=== PATIENT | female | born 1965 | race Caucasian/White ===

== ENCOUNTER → 2016-08-09 | Outpatient (CLI) | payer OTHER ==
--- NOTE | 2016-08-10 15:10 | MAMMOGRAPHY REPORT ---
BILATERAL DIGITAL SCREENING MAMMOGRAM TOMOSYNTHESIS WITH CAD: 08/09/2016 CLINICAL HISTORY: Routine screening. Patient has no complaints. TECHNIQUE: Breast tomosynthesis in addition to standard 2D mammography was performed. Current study was also evaluated with a Computer Aided Detection (CAD) system. COMPARISON: Comparison is made to exams dated: 08/06/2015 mammogram, 10/30/2012 mammogram, 08/19/2015 mammogram, 11/01/2013 mammogram, 10/26/2010 mammogram, and 10/24/2009 mammogram - [facility]. BREAST COMPOSITION: There are scattered areas of fibroglandular density in both breasts. FINDINGS: No new suspicious mass, architectural distortion or cluster of microcalcifications is see n. There is stable asymmetry in the upper outer quadrant of the right breast. IMPRESSION: ACR BI-RADS CATEGORY 1: NEGATIVE There is no mammographic evidence of malignancy. A 1 year screening mammogram is recommended. The p atient will receive written notification of the results. Approximately 10% of breast cancers are not detected with mammography. A negative mammographic repor t should not delay biopsy if a clinically suggestive mass is present. Jael Faust M.D. ay/:08/09/2016 15:51:25 Camera Technician: Darren GONZALES(R)(M), [facility] letter sent: Normal 1/2 BI-RADS Code: ACR BI-RADS Category 1: Negative
== END | disposition home or self-care (01) ==
LOC: C.MAMM 14:23
PROVIDERS: ATTEND Obstetrics & Gynecology
DX: Z12.31 Encounter for screening mammogram for malignant neoplasm of breast (principal)

== ENCOUNTER 2016-09-15 23:28 | Emergency (ER) | payer OTHER ==
[~2016-09-15] VITALS: Ht 167.6 cm; Wt 78.5 kg
[2016-09-15 23:30] VITALS: TEMP 36.6; Ht 167.6 cm; Wt 78.5 kg
[2016-09-15] MEDS ORDERED: KETOROLAC TROMETHAMINE 30 MG/ML VIAL IV STA (23:58)
--- NOTE | 2016-09-16 00:09 | EMERGENCY ROOM VISIT NOTE ---
History Report prepared by Estrella: Bhavesh Mtz Under the Supervision of: Dr. Marlene Farooq D.O. First contact with patient: 23:34 Chief Complaint: ABDOMINAL PAIN Stated Complaint: ABD PAIN History of Present Illness The patient is a 51 year old female who presents to the Emergency Room with complaints of worsening, constant, sharp abdominal pain starting around 1400 today. The patient currently rates her discomfort as a 7/10 in severity. The patient states that the pain is mostly periumbilical and some on the right side. The patient denies any nausea, vomiting, chills, diarrhea, constipation, hematochezia, and urinary symptoms. The patient states that it does not get worse when she eats. She states that she last had a bowel movement last night. The patient states that she took Tylenol, and it helped, however the pain came back very quickly. The patient states that she is taking Depo-Provera since about a month ago. The patient states that she has recently gotten a routine colonoscopy that came back normal. She denies any pertinent medical history other than her son having Crohn's disease. The patient states that she has a history of an exploratory laparotomy. Source of History: patient Onset: 1400 Position: abdomen Symptom Intensity: 7/10 Quality: sharp Timing: constant, worsening Modifying Factors (Relieving): tylenol Associated Symptoms: No chills, No diarrhea, No hematochezia, No nausea, No urinary symptoms, No vomiting Review of Systems See HPI for pertinent positives & negatives. A total of 10 systems reviewed and were otherwise negative. Past Medical & Surgical Surgical Problems: (1) H/O exploratory laparotomy Family History Patient reports no known family medical history. Social History Smoking Status: Never Smoker Alcohol Use: occasionally Marital Status: Housing Status: lives with family Occupation Status: employed Current/Historical Medications Miscellaneous Medications None (Patient States No Home Meds) Allergies Coded Allergies: No Known Allergies (Verified Allergy, 09/20/02) Uncoded Allergies: N (Allergy, Unknown, 09/20/02) NKA (Allergy, Unknown, 09/20/02) Physical Exam Vital Signs Date Time Temp Pulse Resp B/P Pulse Ox O2 Delivery O2 Flow Rate FiO2 09/16/16 01:03 57 20 134/58 100 09/15/16 23:30 36.6 76 20 134/66 99 Room Air Physical Exam HEENT: Head - normocephalic and atraumatic Pupils are equal, round, and reactive to light. Extraocular eye muscles are intact, and sclera are anicteric. Nose - moist nasal mucosa without discharge. Mouth - moist buccal mucosa. Oropharynx is nonerythematous and there is no tonsillar exudate or edema noted. Neck: Supple; no JVD, nuchal rigidity, cervical lymphadenopathy. Heart: Regular rate and rhythm. There is a normal S1 and S2 with no murmurs, clicks, or gallops appreciated. Lungs: Clear to auscultation bilaterally with no wheezes, rales, or rhonchi. Abdomen: Pain in the right lower quadrant with palpation and percussion. Soft, nondistended, with hyperactive bowel sounds. There are no palpable pulsatile masses or hepatosplenomegaly. There is no guarding, rigidity, or rebound noted. Extremities: No evidence of cyanosis, clubbing, or edema. There are easily palpable peripheral pulses. Skin: warm and dry with good turgor and no rashes. Medical Decision & Procedures ER Provider Diagnostic Interpretation: X-ray results as stated below per interpretation by me: Obstruction series: No free air. Significant colonic fecal retention. No signs of small bowel obstruction. Laboratory Results 09/16/16 00:15 Red Blood Count 4.50, Mean Corpuscular Volume 88.0, Mean Corpuscular Hemoglobin 31.1, Mean Corpuscular Hemoglobin Concent 35.4, Mean Platelet Volume 9.9, Neutrophils (%) (Auto) 61.9, Lymphocytes (%) (Auto) 27.7, Monocytes (%) (Auto) 7.0, Eosinophils (%) (Auto) 2.6, Basophils (%) (Auto) 0.7, Neutrophils # (Auto) 4.34, Lymphocytes # (Auto) 1.94, Monocytes # (Auto) 0.49, Eosinophils # (Auto) 0.18, Basophils # (Auto) 0.05 09/16/16 00:15 Test 09/16/16 00:11 09/16/16 00:15 Urine Color YELLOW Urine Appearance CLEAR (CLEAR) Urine pH 6.5 (4.5-7.5) Urine Specific [place] 1.027 (1.000-1.030) Urine Protein NEG (NEG) Urine Glucose (UA) NEG (NEG) Urine Ketones TRACE (NEG) Urine Occult Blood NEG (NEG) Urine Nitrite NEG (NEG) Urine Bilirubin NEG (NEG) Urine Urobilinogen NEG (NEG) Urine Leukocyte Esterase SMALL (NEG) Urine WBC (Auto) 1-5 /hpf (0-5) Urine RBC (Auto) 5-10 /hpf (0-4) Urine Hyaline Casts (Auto) 1-5 /lpf (0-5) Urine Epithelial Cells (Auto) >30 /lpf (0-5) Urine Bacteria (Auto) NEG (NEG) Urine Test NEG (NEG) White Blood Count 7.01 K/uL (4.8-10.8) Red Blood Count 4.50 M/uL (4.2-5.4) Hemoglobin 14.0 g/dL (12.0-16.0) Hematocrit 39.6 % (37-47) Mean Corpuscular Volume 88.0 fL (80-100) Mean Corpuscular Hemoglobin 31.1 pg (25-34) Mean Corpuscular Hemoglobin Concent 35.4 g/dl (32-36) Platelet Count 245 K/uL (130-400) Mean Platelet Volume 9.9 fL (7.4-10.4) Neutrophils (%) (Auto) 61.9 % Lymphocytes (%) (Auto) 27.7 % Monocytes (%) (Auto) 7.0 % Eosinophils (%) (Auto) 2.6 % Basophils (%) (Auto) 0.7 % Neutrophils # (Auto) 4.34 K/uL (1.4-6.5) Lymphocytes # (Auto) 1.94 K/uL (1.2-3.4) Monocytes # (Auto) 0.49 K/uL (0.11-0.59) Eosinophils # (Auto) 0.18 K/uL (0-0.5) Basophils # (Auto) 0.05 K/uL (0-0.2) RDW Standard Deviation 41.3 fL (36.4-46.3) RDW Coefficient of Variation 12.8 % (11.5-14.5) Immature Granulocyte % (Auto) 0.1 % Immature Granulocyte # (Auto) 0.01 K/uL (0.00-0.02) Anion Gap 10.0 mmol/L (3-11) Est Creatinine Clear Calc Drug Dose 64.7 ml/min Estimated GFR () 67.8 Estimated GFR (Non- 58.5 BUN/Creatinine Ratio 18.2 (10-20) Calcium Level 8.8 mg/dl (8.5-10.1) Total Bilirubin 0.4 mg/dl (0.2-1) Direct Bilirubin 0.1 mg/dl (0-0.2) Aspartate Amino Transf (AST/SGOT) 20 U/L (15-37) Alanine Aminotransferase (ALT/SGPT) 20 U/L (12-78) Alkaline Phosphatase 77 U/L (45-117) Total Protein 7.1 gm/dl (6.4-8.2) Albumin 3.5 gm/dl (3.4-5.0) Lipase 188 U/L (73-393) Laboratory results per my review. Procedure IV Toradol-patient refused ED Course 2334: Past medical records reviewed. The patient was evaluated in room B9. A complete history and physical exam was performed. An IV lock was initiated and labs are drawn as above. The patient went for an obstruction series as described above. 2358: The patient refused getting any Toradol IV as her pain was subsiding. 0048: I reevaluated the patient, and she states that she was symptom free. We went over the test results of her labs and x-ray, and she is refusing a CT scan. The patient will be discharged home. Medical Decision The patient is a 51 year old female who presents to the ED with abdominal pain. Differential diagnosis includes colitis, gastritis, appendicitis, cholecystitis , cystitis, diverticulitis, and constipation. Labs: No Leukocytosis, stable H&H, normal LFTs and lipase, normal renal function and glucose, urine test was negative, urinalysis appears contaminated. This is a 51-year-old female patient presents to the emergency department with worsening right lower quadrant abdominal pain. The patient's symptoms resolved while she was here in the emergency department. She had an x-ray which showed moderate colonic fecal retention. The patient has undergone colonoscopy last week and believes that her bowels were not the same sense. There is no free air noted on the x-ray. The patient had no leukocytosis or fever and therefore I do not believe that she would require the CAT scan at this time to rule out appendicitis. She was given very specific expectant care instructions. She was told to return to the emergency room if she developed worsening pain, fever, or vomiting. Impression Primary Impression: Right lower quadrant abdominal pain Scribe Attestation The scribe's documentation has been prepared under my direction and personally reviewed by me in its entirety. I confirm that the note above accurately reflects all work, treatment, procedures, and medical decision making performed by me. Departure Information Dispostion Home / Self-Care Referrals No Doctor, Assigned (PCP) Forms Call Back Authorization, HOME CARE DOCUMENTATION FORM, IMPORTANT VISIT INFORMATION Patient Instructions My [facility] Additional Instructions Rest. Take a bland diet. Drink prune juice or pear juice Return to the ER if you have any worsening symptoms or fever.
[2016-09-16 00:27] LABS: BASO % 0.7 %; BASO ABS # 0.05 K/uL (0-0.2); COMPLETE YES; EOS % 2.6 %; HEMATOCRIT 39.6 % (37-47); IG% 0.1 %; LYMPH % 27.7 %; LYMPH ABS # 1.94 K/uL (1.2-3.4); MEAN CORPUSCULAR HEMOGLOBIN 31.1 pg (25-34); MEAN CORPUSCULAR HGB CONC 35.4 g/dl (32-36); MEAN PLATELET VOLUME 9.9 fL (7.4-10.4); NEUT % 61.9 %; PLATELET COUNT 245 K/uL (130-400); WHITE BLOOD COUNT 7.01 K/uL (4.8-10.8)
[2016-09-16 00:32] LABS: URINE APPEARANCE CLEAR (CLEAR); URINE BILIRUBIN NEG (NEG); URINE COLOR YELLOW; URINE EPITHELIAL CELL AUTO >30 /lpf (0-5); URINE NITRITE NEG (NEG); URINE PH 6.5 (4.5-7.5); URINE SPECIFIC GRAVITY 1.027 (1.000-1.030); UROBILINOGEN NEG (NEG)
[2016-09-16 00:33] LABS: MANUAL MICROSCOPIC REQUIRED? NO; REVIEW REQ? NO
[2016-09-16] MEDS ORDERED: OPTIRAY 320 IV PRN (00:45)
[2016-09-16 00:46] LABS: BUN/CREATININE RATIO 18.2 (10-20); CALCIUM 8.8 mg/dl (8.5-10.1); CREATININE 1.1 mg/dl (0.60-1.20); POTASSIUM 3.8 mmol/L (3.5-5.1)
[2016-09-16 01:03] VITALS: BP 134/58; PULSE 57; O2SAT 100
--- NOTE | 2016-09-16 06:58 | DIAGNOSTIC IMAGING REPORT ---
PA CHEST RADIOGRAPH AND UPRIGHT AND SUPINE AP RADIOGRAPHS OF THE ABDOMEN CLINICAL HISTORY: Abdominal pain. Evaluate for small bowel obstruction. COMPARISON STUDY: No previous studies for comparison. FINDINGS: Lung volumes are normal. Lungs are clear. No pneumothorax or pleural effusion is present. Cardiac size is normal. Mediastinal contours are normal. There is no free air. Bowel gas pattern is normal. There is a mild to moderate amount stool within the colon. No stiffness stool within the rectum is present. Pelvic calcifications statistically represent phleboliths. IMPRESSION: 1. No free air or evidence of bowel obstruction. 2. No acute cardiopulmonary findings. Electronically signed by: Zuhair Lema M.D. 09/16/2016 6:57 AM Dictated Date/Time: 09/16/2016 6:56 AM
== END 2016-09-16 01:04 | disposition home or self-care (01) ==
LOC: C.EDB 23:29
DX: R10.31 Right lower quadrant pain (principal); K59.00 Constipation, unspecified

== ENCOUNTER → 2017-08-10 | Outpatient (CLI) | payer OTHER ==
--- NOTE | 2017-08-11 12:46 | MAMMOGRAPHY REPORT ---
BILATERAL DIGITAL SCREENING MAMMOGRAM TOMOSYNTHESIS WITH CAD: 08/10/2017 CLINICAL HISTORY: Routine screening. TECHNIQUE: Breast tomosynthesis in addition to standard 2D mammography was performed. Current study was also evaluated with a Computer Aided Detection (CAD) system. COMPARISON: Comparison is made to exams dated: 08/09/2016 mammogram, 02/25/2016 mammogram, 08/06/2015 m ammogram, 11/01/2013 mammogram, 10/30/2012 mammogram, and 10/28/2011 mammogram - [facility]. BREAST COMPOSITION: There are scattered areas of fibroglandular density in both breasts. FINDINGS: No suspicious masses, calcifications, or areas of architectural distortion are noted in ei ther breast. There has been no significant interval change compared to prior exams. IMPRESSION: ACR BI-RADS CATEGORY 1: NEGATIVE There is no mammographic evidence of malignancy. A 1 year screening mammogram is recommended. The pa tient will receive written notification of the results. Approximately 10% of breast cancers are not detected with mammography. A negative mammographic report should not delay biopsy if a clinically suggestive mass is present. Erin Cruz M.D. ah/:08/10/2017 14:53:05 Fender Mechanic Apprentice: Darren GONZALES(Noah)(M), letter sent: Normal 1/2 BI-RADS Code: ACR BI-RADS Category 1: Negative
== END | disposition home or self-care (01) ==
LOC: C.MAMM 14:08
PROVIDERS: ATTEND Obstetrics & Gynecology
DX: Z12.31 Encounter for screening mammogram for malignant neoplasm of breast (principal)